=== PATIENT | female | born 1995 | race Caucasian/White ===

== ENCOUNTER 2025-03-18 15:12 | Emergency (ER) | payer BC ==
[~2025-03-18] VITALS: Ht 172.7 cm; Wt 63.5 kg
[2025-03-18 15:34] VITALS: TEMP 98.4
[2025-03-18] MEDS ORDERED: TDAP [DIPH/PERTUSSIS/TET] 0.5 ML VIAL IM ONE (16:17)
[2025-03-18] MEDS ORDERED: GELATIN SPONGE,ABSORBABLE 1 EA SPONGE TP ONE (16:18)
[2025-03-18] MEDS: TDAP [DIPH/PERTUSSIS/TET] 0.5 ML VIAL IM ONE (16:55)
[2025-03-18 17:28] VITALS: BP 133/74; O2SAT 99
== END 2025-03-18 17:29 | disposition home or self-care (01) ==
LOC: ER 15:25
DX: S61.210A Laceration without foreign body of right index finger without damage to nail, initial encounter (principal); S61.212A Laceration without foreign body of right middle finger without damage to nail, initial encounter; W26.8XXA Contact with other sharp object(s), not elsewhere classified, initial encounter; Y93.89 Activity, other specified; Y92.89 Other specified places as the place of occurrence of the external cause; Y99.8 Other external cause status
CPT/HCPCS: 12002; 90471; 90715; 99283; A6403

== ENCOUNTER 2025-03-26 13:23 | Emergency (ER) | payer BC ==
[~2025-03-26] VITALS: Ht 172.7 cm; Wt 63.5 kg
[2025-03-26 13:40] VITALS: BP 138/83; TEMP 98.4; O2SAT 98
== END 2025-03-26 15:14 | disposition left against medical advice (07) ==
LOC: ER 13:25
DX: S61.210D Laceration without foreign body of right index finger without damage to nail, subsequent encounter (principal); X58.XXXD Exposure to other specified factors, subsequent encounter